=== PATIENT | male | born 1975 ===

== ENCOUNTER 2023-08-08 08:00 | Day surgery (SDC) | payer BC, MEDICAID ==
[~2023-08-08 08:00] MED LIST: EPINEPHrine 1 MG/ML SDV ONE; Sodium Chloride 0.9% 10 ML Syringe FLUSH PRN; Sodium Chloride 0.9% 10 ML Syringe FLUSH SCH
[2023-08-08] MEDS ORDERED: Rocuronium 50 MG/5 ML Vial ONE (08:03)
[2023-08-08] MEDS ORDERED: Lidocaine 1% 4 ML ONE (08:03)
[2023-08-08] MEDS ORDERED: Ketorolac 30 MG/ML SDV ONE (08:03)
[2023-08-08] MEDS ORDERED: Midazolam 1 MG/ML 2 ML SDV ONE (08:03)
[2023-08-08] MEDS ORDERED: Ondansetron 4 MG/2 ML SDV ONE (08:03)
[2023-08-08] MEDS ORDERED: fentaNYL 250 MCG/5 ML SDV ONE (08:03)
[2023-08-08] MEDS ORDERED: Propofol 200 MG/20 ML SDV ONE ×2 (08:03→08:44)
[2023-08-08] MEDS ORDERED: ceFAZolin 2 GM Vial ONE (08:04)
[2023-08-08] MEDS: Lactated Ringers 1,000 ML IV SCH (08:20)
[2023-08-08] MEDS: Albuterol 0.083% 2.5 MG/3 ML Neb Soln NEB SCH (08:37)
[2023-08-08] MEDS ORDERED: Dexamethasone 4 MG/ML 5 ML MDV ONE (08:55)
[2023-08-08] MEDS: Bupivacaine 0.5% 30 ML SDV ONE (09:03)
[2023-08-08] MEDS ORDERED: dexmedeTOMIDine HCl 200 MCG/2 ML SDV ONE (09:06)
[2023-08-08] MEDS ORDERED: Ondansetron 4 MG/2 ML SDV IVPUSH PRN (09:23)
[2023-08-08] MEDS ORDERED: HYDROmorphone 0.5 MG/0.5 ML Syringe IVPUSH PRN (09:23)
[2023-08-08] MEDS ORDERED: fentaNYL 100 MCG/2 ML SDV IVPUSH PRN (09:23)
[2023-08-08] MEDS ORDERED: Neostigmine Methylsulfate 10 MG/10 ML MDV ONE (09:25)
[2023-08-08] MEDS: oxyCODONE 5 MG Tab PO ONE (10:30)
== END 2023-08-08 12:20 | disposition home or self-care (01) ==
LOC: JD.SDS 08:00
PROVIDERS: ATTEND Surgery
DX: K42.0 Umbilical hernia with obstruction, without gangrene (principal); I10 Essential (primary) hypertension; J45.909 Unspecified asthma, uncomplicated; F41.9 Anxiety disorder, unspecified; F32.A Depression, unspecified; K21.9 Gastro-esophageal reflux disease without esophagitis; F17.200 Nicotine dependence, unspecified, uncomplicated; Z79.899 Other long term (current) drug therapy
CPT/HCPCS: 49592; A9270; J0171; J0665; J0690; J1100; J1596; J1885; J2250; J2405; J2704; J2710; J3010; J7120; 00790; J3490; J7620-GY